=== PATIENT | female | born 1965 | race Caucasian/White ===

== ENCOUNTER → 2016-11-05 | Outpatient (CLI) | payer OTHER ==
[2015-03-01 13:40] VITALS: BP 124/81
[~2016-11-05] MED LIST: ACETAMINOP-CODEI5 ML PO; CYMBALTA30 M1 PO; DURAGESIC25 MCG/PAT TD; ERGOCALCIFER50000 IU PO; PROAIR RESPICL90 MCG IH
== END ==
LOC: RAD 11:11
DX: M79.604 Pain in right leg (principal); M81.0 Age-related osteoporosis without current pathological fracture; C20 Malignant neoplasm of rectum

== ENCOUNTER → 2017-11-19 | Outpatient (CLI) | payer OTHER ==
[2015-03-01 13:40] VITALS: BP 124/81
== END ==
LOC: RAD 14:35
DX: S22.059D Unspecified fracture of T5-T6 vertebra, subsequent encounter for fracture with routine healing (principal); S22.069D Unspecified fracture of T7-T8 vertebra, subsequent encounter for fracture with routine healing; S22.079D Unspecified fracture of T9-T10 vertebra, subsequent encounter for fracture with routine healing; S22.089D Unspecified fracture of T11-T12 vertebra, subsequent encounter for fracture with routine healing; S22.069A Unspecified fracture of T7-T8 vertebra, initial encounter for closed fracture; S22.079A Unspecified fracture of T9-T10 vertebra, initial encounter for closed fracture; Z98.890 Other specified postprocedural states

== ENCOUNTER → 2018-11-17 | Outpatient (CLI) | payer OTHER ==
[2015-03-01 13:40] VITALS: BP 124/81
== END ==
LOC: RAD 14:15
DX: M41.86 Other forms of scoliosis, lumbar region (principal); M81.0 Age-related osteoporosis without current pathological fracture

== ENCOUNTER 2019-01-13 12:43 | Emergency (ER) | payer OTHER ==
[~2019-01-13] VITALS: Ht 152.4 cm; Wt 62.3 kg
[2019-01-13 13:40] LABS: HEMATOCRIT 46.7 % (37.0-47.0); HEMOGLOBIN 15.4 g/dL (12.5-16.0); MEAN CELL VOLUME 95 fl (78-100); MEAN CORPUSCULAR HEMOGLOBIN 31 pg (27-31); MEAN CORPUSCULAR HGB CONC 33 g/dL (33-37); MEAN PLATELET VOLUME 9.7 fl (7.4-10.4); PLATELET COUNT 233 K/mm3 (130-400); RED BLOOD COUNT 4.93 M/mm3 (4.10-5.30); RED CELL DISTRIBUTION WIDTH 12.7 % (11.5-14.5); WHITE BLOOD COUNT 4.1 K/mm3 (4.8-10.8)
[2019-01-13 13:45] LABS: ALBUMIN 4.5 g/dL (3.5-5.0)
[2019-01-13 13:46] LABS: POTASSIUM 4.5 mmol/L (3.5-5.1); SODIUM 139 mmol/L (136-145)
[2019-01-13 13:47] LABS: CALCIUM 9.8 mg/dL (8.3-10.5)
[2019-01-13 13:48] LABS: GLUCOSE 84 mg/dL (65-105); TOTAL PROTEIN 7.8 g/dL (6.4-8.3)
[2019-01-13 13:49] LABS: CARBON DIOXIDE 27 mmol/L (22-29)
[2019-01-13 13:50] LABS: TOTAL BILIRUBIN 0.7 mg/dL (0.2-1.2)
[2019-01-13 13:52] LABS: LYMPHOCYTE 23 % (20-51); MONOCYTE 11 % (3-10); NEUTROPHILS 64 % (42-75)
[2019-01-13 13:53] LABS: AST-SGOT 15 U/L (5-34)
[2019-01-13 13:55] LABS: ALT/SGPT 12 U/L (0-55)
[2019-01-13 14:01] LABS: CKMB ISOENZYME 1.8 ng/mL (0.0-3.5)
[2019-01-13 14:02] LABS: TROPONIN-I < 0.03 ng/mL (<0.030)
[2019-01-13 14:14] LABS: D-DIMER 0.15 mg/L FEU (0.15-0.50)
[2019-01-13 15:32] VITALS: BP 126/88
== END 2019-01-13 15:20 | disposition home or self-care (01) ==
LOC: ED 12:43
PROVIDERS: Family Medicine
DX: S22.42XA Multiple fractures of ribs, left side, initial encounter for closed fracture (principal); M81.0 Age-related osteoporosis without current pathological fracture; Z98.890 Other specified postprocedural states; Z88.8 Allergy status to other drugs, medicaments and biological substances; Y93.02 Activity, running

== ENCOUNTER → 2019-10-26 | Outpatient (CLI) | payer OTHER | LOC: RAD 14:09 | DX: M25.551 Pain in right hip (principal); M81.8 Other osteoporosis without current pathological fracture ==

== ENCOUNTER → 2019-12-30 | Outpatient (CLI) | payer OTHER | LOC: LAB 14:19 | DX: M81.8 Other osteoporosis without current pathological fracture (principal); M25.551 Pain in right hip ==

== ENCOUNTER → 2020-01-23 | Outpatient (CLI) | payer OTHER | LOC: RAD 13:24 | DX: M79.671 Pain in right foot (principal) ==

== ENCOUNTER → 2020-03-02 | Outpatient (CLI) | payer OTHER | LOC: RAD 15:06 | DX: K44.9 Diaphragmatic hernia without obstruction or gangrene (principal); M81.0 Age-related osteoporosis without current pathological fracture; Z98.890 Other specified postprocedural states ==

== ENCOUNTER → 2021-10-23 | Outpatient (CLI) | payer OTHER ==
[2021-10-23 13:53] LABS: BASO # 0.02 K/mm3 (0.02-0.10); EOS # 0.08 K/mm3 (0.04-0.40); HEMATOCRIT 46.5 % (37.0-47.0); HEMOGLOBIN 15.1 g/dL (12.5-16.0); LYMPH# 0.93 K/mm3 (1.50-4.00); MEAN CELL VOLUME 96 fl (78-100); MEAN CORPUSCULAR HEMOGLOBIN 31 pg (27-31); MEAN CORPUSCULAR HGB CONC 33 g/dL (33-37); MEAN PLATELET VOLUME 9.5 fl (7.4-10.4); MONO # 0.43 K/mm3 (0.20-0.80); NEU # 2.45 K/mm3 (1.40-6.50); PLATELET COUNT 231 K/mm3 (130-400); RED BLOOD COUNT 4.87 M/mm3 (4.10-5.30); RED CELL DISTRIBUTION WIDTH 12.1 % (11.5-14.5); WHITE BLOOD COUNT 3.9 K/mm3 (4.8-10.8)
[2021-10-23 14:01] LABS: ALBUMIN 4.2 g/dL (3.5-5.0); POTASSIUM 4.5 mmol/L (3.5-5.1)
[2021-10-23 14:02] LABS: CALCIUM 9.4 mg/dL (8.3-10.5)
[2021-10-23 14:03] LABS: TOTAL PROTEIN 7.8 g/dL (6.4-8.3)
[2021-10-23 14:05] LABS: TOTAL BILIRUBIN 0.7 mg/dL (0.2-1.2)
== END ==
LOC: LAB 13:32
PROVIDERS: Family Medicine
DX: Z13.1 Encounter for screening for diabetes mellitus (principal); Z13.220 Encounter for screening for lipoid disorders; M81.8 Other osteoporosis without current pathological fracture; S32.009D Unspecified fracture of unspecified lumbar vertebra, subsequent encounter for fracture with routine healing; I10 Essential (primary) hypertension; Z85.9 Personal history of malignant neoplasm, unspecified

== ENCOUNTER → 2021-10-23 | Outpatient (CLI) | payer OTHER | LOC: RAD 15:20 | DX: J98.6 Disorders of diaphragm (principal) ==

== ENCOUNTER → 2021-11-13 | Outpatient (CLI) | payer OTHER | LOC: RAD 14:31 | DX: M85.88 Other specified disorders of bone density and structure, other site (principal); Z91.81 History of falling ==